=== PATIENT | male | born 1940 | race Caucasian/White ===

== ENCOUNTER 2018-07-06 07:07 | Emergency (ER) | payer OTHER ==
--- NOTE | 2018-07-06 08:26 | EDPHYS ---
Physician Documentation [facility] Name: Juan Francisco Whelan Jr Age: 77 yrs Sex: Male : 1940 Arrival Date: 07/06/2018 Time: 07:17 Bed 13 Private MD: ED Physician Ridge Kerns HPI: 07/06 07:34 This 77 yrs old Male presents to ER via Unassigned with complaints of Problem rn With Urinary Catheter. 07:34 The patient presents with a Mccarthy catheter problem, is not draining. Onset: The rn symptoms/episode began/occurred last night. Modifying factors: The symptoms are alleviated by nothing, the symptoms are aggravated by nothing. Severity of symptoms: At their worst the symptoms were moderate, in the emergency department the symptoms are unchanged. The patient has experienced similar episodes in the past. The patient has not recently seen a physician. Reports had urinary catheter placed 1 week ago at [facility] for hematuria, was doing well, still taking aspirin, clogged again yesterday, irrigated at [facility] ER, was doing ok, then no urinary output since 0500 today, + mild lower abd pressure. They found mass in bladder, and has appt for cystoscope in 2 days at [facility].. Historical: - Allergies: 07:44 NKA; iw - Home Meds: 07:53 Metoprolol Tartrate Oral [Active]; valsartan oral oral [Active]; steroid [Active]; iw gabapentin oral oral [Active]; Vitamin B-12 Oral [Active]; antidepressant [Active]; Omeprazole Oral [Active]; calcium [Active]; hormone injections [Active]; aspirin 325 mg Oral TbEC 1 tab once daily [Active]; - PMHx: 07:53 Hypertension; Stage 4 prostate cancer; iw - PSHx: 07:44 prostatectomy; CABG; Carotid surgery; Heart stents; iw - Immunization history:: Adult Immunizations. - Social history:: Smoking status: . - Family history:: not pertinent. - Ebola Screening: : Patient negative for fever greater than or equal to 101.5 degrees Fahrenheit, and additional compatible Ebola Virus Disease symptoms Patient denies exposure to infectious person Patient denies travel to an Ebola-affected area in the 21 days before illness onset No symptoms or risks identified at this time. - Hospitalizations: : No recent hospitalization is reported. ROS: 07:34 Constitutional: Negative for fever, chills, and weight loss, Eyes: Negative for injury, rn pain, redness, and discharge, Neck: Negative for injury, pain, and swelling, Cardiovascular: Negative for chest pain, palpitations, and edema, Respiratory: Negative for shortness of breath, cough, wheezing, and pleuritic chest pain, Abdomen/GI: Negative for nausea, vomiting, diarrhea, and constipation, : + hematuria and blocked catheter MS/Extremity: Negative for injury and deformity, Skin: Negative for injury, rash, and discoloration, Neuro: Negative for headache, weakness, numbness, tingling, and seizure. Exam: 07:34 Constitutional: This is a well developed, well nourished patient who is awake, alert, rn and in no acute distress. Abdomen/GI: soft, mild suprapubic fullness and tenderness Male : mccarthy catheter in place and no urine output in leg bag Vital Signs: 08:00 BP 182 / 64; Pulse 64; Resp 16; Pulse Ox 100% on R/A; em 08:34 BP 168 / 63; Pulse 58; Resp 18; Pulse Ox 99% on R/A; Pain 0/10; em MDM: 07:21 Patient medically screened. rn 08:24 Differential diagnosis: urinary retention, Mccarthy catheter problem. Data reviewed: vital rn signs, nurses notes, and as a result, I will discharge patient. Counseling: I had a detailed discussion with the patient and/or guardian regarding: the historical points, exam findings, and any diagnostic results supporting the discharge/admit diagnosis, the need for outpatient follow up, to return to the emergency department if symptoms worsen or persist or if there are any questions or concerns that arise at home. Response to treatment: the patient's symptoms have markedly improved after treatment, the patient's symptoms have resolved after treatment, and as a result, I will discharge patient. Special discussion: I discussed with the patient/guardian in detail that at this point there is no indication for admission to the hospital. It is understood, however, that if the symptoms persist or worsen the patient needs to return immediately for re-evaluation. ED course: Clots removed, feels great, will dc home, already on abx, has appt in 2 days. Will hold aspirin until then.. 07/06 07:32 Order name: Urine Microscopic Only rn 07/06 07:32 Order name: Urine Culture rn 07/06 07:32 Order name: Mccarthy: Has mccarthy already, irrigate existing mccarthy until clear; Complete rn Time: 08:29 07/06 07:32 Order name: Urine Dipstick-Ancillary (obtain specimen); Complete Time: 08: rn Administered Medications: No medications were administered Disposition: 07/06/18 08:25 Discharged to Home. Impression: Hematuria, unspecified, Mccarthy catheter obstruction. - Condition is Stable. - Discharge Instructions: Mccarthy Catheter Care, Adult, Hematuria, Adult. - Medication Reconciliation Form, Thank You Letter, Antibiotic Education, Prescription Opioid Use form. - Follow up: Private Physician; When: As needed; Reason: Recheck today's complaints, Re-evaluation by your physician. - Problem is new. - Symptoms have improved. Signatures: Dispatcher [employer] EDDario Aguilar, PING PONG TABLE ASSEMBLER PING PONG TABLE ASSEMBLER Disha Medina RN RN iw Nieto, Roman, MD MD corn shredder: (The following items were deleted from the chart) 08:41 08:25 07/06/2018 08:25 Discharged to Home. Impression: Hematuria, unspecified; Mccarthy em catheter obstruction. Condition is Stable. Forms are Medication Reconciliation Form, Thank You Letter, Antibiotic Education, Prescription Opioid Use. Follow up: Private Physician; When: As needed; Reason: Recheck today's complaints, Re-evaluation by your physician. Problem is new. Symptoms have improved. rn
--- NOTE | 2018-07-06 08:26 | ER ---
Nurse's Notes [facility] Name: Juan Francisco Whelan Jr Age: 77 yrs Sex: Male : 1940 Arrival Date: 07/06/2018 Time: 07:17 Bed 13 Private MD: Diagnosis: Hematuria, unspecified;Mccarthy catheter obstruction Presentation: 07/06 07:30 Presenting complaint: Patient states: was seen at [facility] a week ago, was passing iw large blood clots, they placed a mccarthy and irrigated bladder, urine cleared up and mccarthy was removed, was sent home, then yesterday the clots came back and he had a mccarthy placed again at [place], last night the mccarthy stopped draining at around 3 or 5 in the morning, pt has hx of prostate cancer and was told he has a mass in his bladder. Transition of care: patient was not received from another setting of care. Onset of symptoms was July 06, 2018. Risk Assessment: Do you want to hurt yourself or someone else? Patient reports no desire to harm self or others. Initial Sepsis Screen: Does the patient meet any 2 criteria? No. Patient's initial sepsis screen is negative. Does the patient have a suspected source of infection? No. Patient's initial sepsis screen is negative. Care prior to arrival: None. 07:30 Method Of Arrival: Ambulatory iw 07:30 Acuity: JERRY 3 iw Historical: - Allergies: 07:44 NKA; iw - Home Meds: 07:53 Metoprolol Tartrate Oral [Active]; valsartan oral oral [Active]; steroid [Active]; iw gabapentin oral oral [Active]; Vitamin B-12 Oral [Active]; antidepressant [Active]; Omeprazole Oral [Active]; calcium [Active]; hormone injections [Active]; aspirin 325 mg Oral TbEC 1 tab once daily [Active]; - PMHx: 07:53 Hypertension; Stage 4 prostate cancer; iw - PSHx: 07:44 prostatectomy; CABG; Carotid surgery; Heart stents; iw - Immunization history:: Adult Immunizations. - Social history:: Smoking status: . - Family history:: not pertinent. - Ebola Screening: : Patient negative for fever greater than or equal to 101.5 degrees Fahrenheit, and additional compatible Ebola Virus Disease symptoms Patient denies exposure to infectious person Patient denies travel to an Ebola-affected area in the 21 days before illness onset No symptoms or risks identified at this time. - Hospitalizations: : No recent hospitalization is reported. Screenin:33 Abuse screen: Denies threats or abuse. Nutritional screening: No deficits noted. em Tuberculosis screening: No symptoms or risk factors identified. Fall Risk None identified. Assessment: 08:00 General: Appears in no apparent distress. uncomfortable, Behavior is calm, cooperative. em Pain: Complains of pain in suprapubic area. Neuro: Level of Consciousness is awake, alert, obeys commands, Oriented to person, place, time, situation. Cardiovascular: Denies chest pain, shortness of breath, Capillary refill < 3 seconds Patient's skin is warm and dry. Respiratory: Airway is patent Respiratory effort is even, unlabored, Respiratory pattern is regular, symmetrical. GI: Abdomen is round non-distended. : Mccarthy in place no drainage noted, dry blood in leg bag. EENT: No signs and/or symptoms were reported regarding the EENT system. Derm: Skin is intact, Skin is pink, warm \T\ dry. Musculoskeletal: Range of motion: intact in all extremities. 08:30 Reassessment: Patient appears in no apparent distress at this time. Patient and/or em family updated on plan of care and expected duration. Pain level reassessed. Patient is alert, oriented x 3, equal unlabored respirations, skin warm/dry/pink. Patient denies pain at this time. Patient states feeling better. Patient states symptoms have improved. Vital Signs: 08:00 BP 182 / 64; Pulse 64; Resp 16; Pulse Ox 100% on R/A; em 08:34 BP 168 / 63; Pulse 58; Resp 18; Pulse Ox 99% on R/A; Pain 0/10; em ED Course: 07:17 Patient arrived in ED. mr 07:21 Ridge Kerns MD is Attending Physician. rn 07:43 Triage completed. iw 07:44 Arm band placed on. iw 07:47 Dario Villegas LVN is Primary Nurse. em 08:10 Urine collected: Mccarthy catheter specimen, blood tinged, asha blood, Amount Returned: dh3 450mL. 08:32 Patient did not have IV access during this emergency room visit. Bladder irrigated via em Mccarthy with 500 ml normal saline returned clear fluid Patient tolerated well. 08:33 Patient has correct armband on for positive identification. Placed in gown. Bed in low em position. Call light in reach. Adult w/ patient. 08:33 No provider procedures requiring assistance completed. em Administered Medications: No medications were administered Outcome: 08:25 Discharge ordered by . rn 08:40 Discharged to home ambulatory, with family. em 08:40 Condition: good 08:40 Discharge instructions given to patient, family, Instructed on discharge instructions, follow up and referral plans. Demonstrated understanding of instructions, follow-up care. 08:41 Patient left the ED. em Signatures: Nataliya Johnson Bakari, Dario, MARKETING AND COMMUNICATIONS OFFICER MARKETING AND COMMUNICATIONS OFFICER Disha Medina, Ridge Subramanian RN, MD MD rn Herrera, [facility]
[2018-07-06 08:55] LABS: Urine Bacteria NONE SEEN /HPF (NONE SEEN); Urine Culture Reflex Order NOT NEEDED; Urine RBC >50 /HPF (NONE SEEN)
[2018-07-28 14:05] LABS: Urine Blood 3+ (NEG); Urine Glucose NEGATIVE (NEG); Urine Protein 2+ (NEG); Urine pH 6.5 (5.0-7.0)
== END 2018-07-06 08:41 | disposition home or self-care (01) ==
LOC: ER 07:07
DX: T83.091A Other mechanical complication of indwelling urethral catheter, initial encounter (principal); I10 Essential (primary) hypertension; Z79.82 Long term (current) use of aspirin; Z85.46 Personal history of malignant neoplasm of prostate; Z95.1 Presence of aortocoronary bypass graft; Z95.818 Presence of other cardiac implants and grafts
CPT/HCPCS: 51700; 81003; 81015; 87086; 87088; 99284